=== PATIENT | male | born 1985 | race American Indian/Alaskan Native ===

== ENCOUNTER 2017-04-13 10:00 | Outpatient (CLI) | payer OTHER ==
[2017-04-13 10:57] LABS: Blood Urea Nitrogen 11 mg/dL (9-20)
[2017-04-13] MEDS ORDERED: NACL ONE (12:40)
--- NOTE | 2017-04-13 14:14 | Cat Scan Report ---
CT ABDOMEN AND PELVIS WITH CONTRAST INDICATION: Stomach pain. COMPARISON: None similar. FINDINGS: Abdomen and pelvis CT performed following oral contrast and intravenous administration of 100 cc of Omnipaque 300. LUNG BASES: Top normal heart size. No effusions. Slight nonspecific distal esophageal wall prominence/thickening, not excluded for gastroesophageal reflux and/or hiatal hernia, amongst others. ABDOMEN: Liver, spleen, gallbladder, pancreas, adrenals, nonaneurysmal abdominal aorta, IVC and kidneys appear within normal limits bilaterally without hydronephrosis, ascites or size significant adenopathy. Nonobstructive GI tract. A normal appendix may be visualized medial to the cecum. Moderate to large stool throughout colon/possible constipation. PELVIS: Rectosigmoid stool. Unremarkable urinary bladder, seminal vesicles and the prostate. No free fluid or significant adenopathy. Unremarkable bones. CONCLUSION: Constipation and few other incidental findings, as above. Please correlate. Thank you for the opportunity to participate in this patient's care.
== END 2017-04-13 10:01 | disposition home or self-care (01) ==
LOC: CT 10:00
PROVIDERS: ATTEND Internal Medicine Gastroenterology
DX: K92.2 Gastrointestinal hemorrhage, unspecified (principal); K21.9 Gastro-esophageal reflux disease without esophagitis; K59.00 Constipation, unspecified; K30 Functional dyspepsia; Z87.891 Personal history of nicotine dependence
CPT/HCPCS: 36415; 74177; 82565; 84520; Q9967

== ENCOUNTER 2017-05-03 07:58 | Day surgery (SDC) | payer OTHER ==
[2017-05-03] MEDS ORDERED: DIPRIVAN 10 MG/ML IV ONE ×2 (09:21)
[2017-05-03] MEDS ORDERED: NACL 0.9% 1000 ML 1,000 ML IV SCH (10:00)
--- NOTE | 2017-05-03 10:13 | Anesthesia Day of Surgery ---
Anesthesia Day of Surgery - Day of Surgery Patient Examined: Yes Patient H&P Reviewed: Yes Patient is NPO: Yes
--- NOTE | 2017-05-03 10:15 | Anesthesia Consultation ---
Anesthesia Consult and Med Hx Date of service: 05/03/17 - Airway Anesthetic Teeth Evaluation: Good ROM Head & Neck: Adequate Mental/Hyoid Distance: Adequate Mallampati Class: Class II Intubation Access Assessment: Probably Good - Pulmonary Exam CTA: Yes - Cardiac Exam Cardiac Exam: RRR - Pre-Operative Health Status ASA Pre-Surgery Classification: ASA2 Proposed Anesthetic Plan: MAC - Pulmonary Hx Smoking: No Hx Asthma: Yes (inhaler every other day, used this AM) - Cardiovascular System Hx Hypertension: No Hx Heart Attack/AMI: No - Central Nervous System Hx Seizures: No CVA: No - Gastrointestinal Hx Gastroesophageal Reflux Disease: Yes - Endocrine Hx Renal Disease: No Hx Liver Disease: No - Hematic Hx Anemia: No Hx Sickle Cell Disease: No - Additional Comments Anesthesia Medical History Comments: Denies any familial anesthesia complication
--- NOTE | 2017-05-03 10:40 | Short Stay Summary ---
Short Stay Documentation - Allergies and Medications Current Medications: Allergies No Known Allergies Allergy (Unverified 09/15/15 11:17) Home Medications Medication Instructions Recorded Confirmed Last Taken Type Cyanocobalamin (Vitamin B-12) 2,500 mcg PO DAILY 09/15/15 09/15/15 09/12/15 History [Vitamin B12] Melatonin [Melatin] 3 mg PO QHS 09/15/15 09/15/15 09/14/15 History Omeprazole 40 mg PO 05/03/17 05/02/17 08:00 History Ranitidine HCl 150 mg PO DAILY 05/03/17 05/03/17 05/02/17 21:00 History Active Medications Sodium Chloride (Nacl 0.9% 1000 Ml) 1,000 mls @ 50 mls/hr IV DIRECT GENO - Brief post op/procedure progress note Date of procedure: 05/03/17 Pre-op diagnosis: 1. Epigastric pain 2. Functional dyspepsia 3. GERD Post-op diagnosis: same (1. GERD 2. Gastritis 3. Duodenitis) Procedure: EGD with biopsy Findings: as above Surgeon: SONIA ANGELA Estimated blood loss: none Pathology: list (1. Antrum) Specimen disposition: to lab Condition: stable - Disposition Condition at discharge: Stable Short Stay Discharge Plan Activity: no restrictions Weight Bearing Status: Full Weight Bearing Diet: regular Follow up with: SULLY IGLESIAS MD [Primary Care Provider] - 7 Days
[2017-05-03 11:09] VITALS: BP 119/78
--- NOTE | 2017-05-03 11:09 | Post Anesthesia Evaluation ---
- Post Anesthesia Evaluation Patient Participated: Yes Airway Patent: Yes Stable Respiratory Function: Yes Temp > 96.8F: Yes Pain Manageable: Yes Adequeate Hydration: Yes Anesthesia Complications: No Block Receding Appropriately: Not Applicable
== END 2017-05-03 07:59 | disposition home or self-care (01) ==
LOC: GIO 07:58
PROVIDERS: ATTEND Internal Medicine Gastroenterology
DX: K21.9 Gastro-esophageal reflux disease without esophagitis (principal); K29.50 Unspecified chronic gastritis without bleeding; K29.80 Duodenitis without bleeding; J45.909 Unspecified asthma, uncomplicated; Z79.899 Other long term (current) drug therapy; Z98.890 Other specified postprocedural states; Z83.79 Family history of other diseases of the digestive system
CPT/HCPCS: 43239; 88305; 88342; J2704; J7030